=== PATIENT | male | born 1970 | race Caucasian/White ===

== ENCOUNTER 2020-12-23 11:05 | Outpatient (CLI) | payer MEDICARE, OTHER ==
[2020-12-23 12:15] LABS: MICROSCOPIC AUTO
[2020-12-23] MEDS ORDERED: DULA1.5P INJ (12:20)
[2020-12-23] MEDS ORDERED: BUSP15TA PO (12:20)
[2020-12-23] MEDS ORDERED: METF500T17 PO (12:20)
[2020-12-23] MEDS ORDERED: LAMO200T3 PO (12:20)
[2020-12-23] MEDS ORDERED: GABA600T7 PO (12:20)
[2020-12-23] MEDS ORDERED: VENL37.52 PO (12:20)
[2020-12-23 12:26] LABS: ALANINE AMINOTRANSFERASE 51 U/L (12-78); ANION GAP 10 mmol/L (5-15); CALCIUM 9.4 mg/dL (8.5-10.1); CHLORIDE 106 mmol/L (98-107); CREATININE 1.01 mg/dL (0.7-1.3); INTERNATIONAL NORMALIZED RATIO 0.99 (0.93-1.1); PROTHROMBIN TIME 10.6 Seconds (9.6-11.5)
[2020-12-23 12:27] LABS: BASOPHILS % (AUTO) 1 % (0-1); EOSINOPHILS % (AUTO) 2 % (1-7); LYMPHOCYTES % (AUTO) 30 % (22-44); MEAN CORPUSCULAR HEMOGLOBIN 30.7 pg (27.5-34.5); MEAN CORPUSCULAR HGB CONC 33.5 g/dL (33.2-36.2); MEAN PLATELET VOLUME 8.3 fL (7.4-10.4); MONOCYTES % (AUTO) 6 % (2-9); NEUTROPHILS % (AUTO) 63 % (42-75); PLATELET COUNT 482 x10^3/uL (130-400); RED BLOOD COUNT 5.45 x10^6/uL (4.38-5.82); RED CELL DISTRIBUTION WIDTH 15.1 % (9.4-14.8)
[2020-12-23 12:29] LABS: ALKALINE PHOSPHATASE 102 U/L (45-117); BILIRUBIN,TOTAL 0.4 mg/dL (0.2-1.0); TOTAL PROTEIN 8.3 g/dL (6.4-8.2)
[2020-12-23 13:31] LABS: HCT (SEDRATE) 49.9 % (39.2-51.8)
== END 2020-12-23 23:59 | disposition home or self-care (01) ==
LOC: STAR 11:05
PROVIDERS: ATTEND Orthopaedic Surgery Orthopaedic Surgery of the Spine
DX: Z01.818 Encounter for other preprocedural examination (principal); M51.16 Intervertebral disc disorders with radiculopathy, lumbar region; M48.062 Spinal stenosis, lumbar region with neurogenic claudication
CPT/HCPCS: 36415; 71046; 80053; 80074; 81001; 85025; 85610; 85651; 85730; 87086; 87806; 93005; G0475

== ENCOUNTER 2021-01-06 05:53 | Day surgery (SDC) | payer MEDICARE, OTHER ==
[~2021-01-06] VITALS: Ht 188 cm; Wt 133.2 kg
[~2021-01-06 05:53] MED LIST: BUSP15TA PO; DULA1.5P INJ; GABA600T7 PO; LAMO200T3 PO; METF500T17 PO; VENL37.52 PO
[2021-01-06] MEDS ORDERED: CHLORHEXIDINE 15 ML UDC ONE (06:26)
[2021-01-06] MEDS ORDERED: CHLORHEXIDINE 15 ML UDC PO ONE (06:30)
[2021-01-06] MEDS ORDERED: LACTATED RINGERS 1,000 ML IV SCH (06:30)
[2021-01-06] MEDS ORDERED: VANCOMYCIN 1,000 MG ONE (06:40)
[2021-01-06] MEDS ORDERED: EPINEPHRINE 1 MG/ML, 1ML ONE (06:40)
[2021-01-06] MEDS ORDERED: BUPIVACAINE/PF 0.5% ONE (06:40)
[2021-01-06] MEDS ORDERED: LIDOCAINE/PF 1%, 30ML ONE (06:40)
[2021-01-06] MEDS ORDERED: QUET300T5 PO (06:49)
[2021-01-06] MEDS ORDERED: CELE200C PO (06:49)
[2021-01-06 06:50] VITALS: BP 130/78
[2021-01-06 06:52] VITALS: BP 130/78
[2021-01-06] MEDS ORDERED: PROPOFOL 50 ML ONE ×2 (07:26→08:25)
[2021-01-06] MEDS ORDERED: MIDAZOLAM 1 MG/ML, 2ML ONE (07:27)
[2021-01-06] MEDS ORDERED: FENTANYL PF 250 MCG/5ML ONE ×2 (07:27→08:22)
[2021-01-06] MEDS ORDERED: GENTAMICIN 80 MG/2 ML ONE (08:05)
[2021-01-06] MEDS ORDERED: SUGAMMADEX 200 MG/2 ML IVPush ONE (08:33)
[2021-01-06] MEDS ORDERED: CEFAZOLIN 1,000 MG ONE ×2 (09:38)
[2021-01-06] MEDS ORDERED: ONDANSETRON 2MG/ML, 2ML ONE ×2 (10:03)
[2021-01-06] MEDS ORDERED: DEXAMETHASONE 4 MG/ML, 1ML ONE ×2 (10:03)
[2021-01-06] MEDS ORDERED: PROPOFOL 10 MG/ML, 20ML ONE ×2 (10:03)
[2021-01-06] MEDS ORDERED: ROCURONIUM 10MG/ML,5ML ONE (10:03)
[2021-01-06] MEDS ORDERED: SUCCINYLCHOLINE 20 MG/ML, 10ML ONE (10:03)
[2021-01-06] MEDS ORDERED: KETOROLAC 30 MG/1 ML ONE (11:44)
[2021-01-06] MEDS ORDERED: NS + 20MEQ KCL 1,000 ML IV SCH (12:00)
[2021-01-06] MEDS ORDERED: METHOCARBAMOL 1,000 MG in DEXTROSE 5% 100 ML IV ONE (12:00)
[2021-01-06] MEDS ORDERED: LABETALOL 5MG/ML 40ML VIAL IVPush SCH (12:00)
[2021-01-06] MEDS ORDERED: KETOROLAC 30 MG/1 ML IVPush ONE (12:00)
[2021-01-06] MEDS ORDERED: PHARMACY MAY ADJ FOR RENAL FX MC PRN (12:00)
[2021-01-06] MEDS ORDERED: morphine SULFATE 10 MG/ML, 1ML IVPush PRN (12:30)
[2021-01-06] MEDS ORDERED: HYDROcodone/APAP 10/325 MG TABLET PO PRN (12:30)
== END 2021-01-06 13:30 | disposition home or self-care (01) ==
LOC: OUT 05:53
PROVIDERS: ATTEND Orthopaedic Surgery Orthopaedic Surgery of the Spine
DX: M51.16 Intervertebral disc disorders with radiculopathy, lumbar region (principal); M48.07 Spinal stenosis, lumbosacral region; E11.9 Type 2 diabetes mellitus without complications; J45.909 Unspecified asthma, uncomplicated; F33.9 Major depressive disorder, recurrent, unspecified; E66.01 Morbid (severe) obesity due to excess calories; F17.210 Nicotine dependence, cigarettes, uncomplicated; Z20.822 Contact with and (suspected) exposure to COVID-19; Z68.39 Body mass index [BMI] 39.0-39.9, adult; Z79.899 Other long term (current) drug therapy
CPT/HCPCS: 63030; 63035; 72100; 82962; 87635; 95938; 95941; C1751; J0171; J0330; J0690; J1100; J1580; J1885; J2250; J2405; J2704; J3010; J3370; J7120